=== PATIENT | female | born 1980 | race Caucasian/White ===

== ENCOUNTER 2017-06-13 11:04 | Outpatient (CLI) | payer OTHER ==
--- NOTE | 2017-06-13 16:20 | Ultrasound Report ---
RIGHT BREAST ULTRASOUND: 06/13/2017 CLINICAL INDICATION: Tenderness and intermittent palpable abnormality inferior right breast. TECHNIQUE: Real-time scanning was performed with employer relations representative static images obtained. Ultrasound of the 6 o'clock position of the right breast was performed, directed to the region of ten derness identified by the patient. Unremarkable parenchymal lobules are seen. No discrete solid or cystic mass is identified. No sonographically suspicious findings are seen. IMPRESSION: NEGATIVE EXAMINATION. RECOMMENDATION: ROUTINE ANNUAL SCREENING, TO COMMENCE AT AGE 40, UNLESS OTHERWISE CLINICALLY INDICAT ED. BIRADS CATEGORY: 1, NEGATIVE. JOB #: [id number] EXT JOB #:[id number]
--- NOTE | 2017-06-13 17:36 | Mammography Report ---
DIGITAL DIAGNOSTIC BILATERAL MAMMOGRAM: 06/13/2017 CLINICAL INDICATION: Tenderness and intermittent palpable abnormality right inferior breast. TECHNIQUE: Bilateral CC and MLO views, right true lateral view. A marker was placed at the site of clinical concern identified by the patient. This is the patient's baseline mammogram. The breasts demonstrate heterogeneously dense fibroglandular parenchyma bilaterally. A few coarse, t ypically benign calcifications are present. No suspicious masses, clustered microcalcifications, or regions of architectural distortion are identified. Specifically, no discrete mammographic abnormali ty is appreciated in the inferior right breast, at the site indicated by the marker. Please also ref er to right breast ultrasound of the same day. IMPRESSION: BENIGN FINDINGS. RECOMMENDATION: ROUTINE ANNUAL SCREENING, TO COMMENCE AT AGE 40, UNLESS OTHERWISE CLINICALLY INDICAT ED. BIRADS CATEGORY: 2, BENIGN FINDINGS. STANDARD QUALIFYING STATEMENTS 1. This examination was reviewed with the aid of Computed-Aided Detection (CAD). 2. A negative or benign imaging report should not delay biopsy if clinically suspicious findings are present. Consider surgical consultation if warranted. More than 5% of cancers are not identified b y imaging. 3. Dense breasts may obscure an underlying neoplasm. JOB #: [id number] EXT JOB #:[id number]
== END 2017-06-13 11:05 | disposition home or self-care (01) ==
LOC: DI 11:04
PROVIDERS: ATTEND Physician Assistant Medical
DX: N63 Unspecified lump in breast (principal)
CPT/HCPCS: 76642; 77066

== ENCOUNTER 2023-01-07 09:41 | Outpatient (CLI) | payer OTHER ==
--- NOTE | 2023-01-08 12:44 | Mammography Report ---
BILATERAL DIGITAL SCREENING MAMMOGRAM 3D/2D: 01/07/2023 CLINICAL: Routine screening. Mother with breast cancer. Comparison is made to exam dated: 06/13/2017 mammogram - [facility]. Both breasts are extremely dense, which lowers the sensitivity of mammography (category d />75% gland ular tissue). There is a benign calcification in the left breast. No significant masses, calcifications, or other findings are seen in either breast. There has been no significant interval change. IMPRESSION: BENIGN There is no mammographic evidence of malignancy. A 1 year screening mammogram is recommended. Based on Tyrer-Cuzick model (a risk assessment model), the patient's lifetime risk is 41.5% and her 1 0 year risk is 7.9%. If a patient has an elevated risk, a more comprehensive evaluation should be con sidered and/or a referral to a genetic counselor. The [employer], [employer], and NCCN Guidelines advise the consideration of Breast MRI as an adjunct to screening mammog carolyne in patients whose "Lifetime risk to develop breast cancer" is 20% or higher. This exam was interpreted at Station ID: [id number]. NOTE: For mammograms, a report in lay terms will be sent to the patient. Approximately 15% of breast malignancies will not be visualized mammographically. In the management of a palpable breast mass, a negative mammogram must not discourage biopsy of a clinically suspicious lesion. Electronically Signed By: Magno romero/ilya:01/07/2023 10:32:21 letter sent: No_Letter ACR BI-RADS Category 2: Benign Finding(s) 3342F PARENCHYMAL PATTERN: (VD) - The breast(s) demonstrate(s) extremely dense parenchyma, limiting the sen sitivity of mammography. BI-RADS CATEGORY: (2) - 2 Mammogram [id number] 1 year screening LATERALITY: (B)
== END 2023-01-07 09:42 | disposition home or self-care (01) ==
LOC: DI 09:41
PROVIDERS: ATTEND Nurse Practitioner
DX: Z12.31 Encounter for screening mammogram for malignant neoplasm of breast (principal); Z80.3 Family history of malignant neoplasm of breast